=== PATIENT | male | born 1990 | race Caucasian/White ===

== ENCOUNTER → 2021-06-12 19:27 | Outpatient (CLI) | payer MEDICAID, SELFPAY | PROVIDERS: Visit Provider Nurse Practitioner Family | DX: Z20.822 Contact with and (suspected) exposure to COVID-19 (principal) | CPT/HCPCS: C9803; U0003; U0005 ==

== ENCOUNTER 2021-08-30 13:26 | Emergency (ER) | payer MEDICAID, SELFPAY ==
[2021-08-30 13:46] VITALS: BP 153/99; PULSE 90; RESP 19; TEMP 36.7; O2SAT 99
[2021-08-30 14:10] VITALS: BP 153/99; PULSE 90; RESP 19; TEMP 36.7; O2SAT 99
--- NOTE | 2021-08-30 14:10 | [facility].EDUTC ---
[facility] Dis[place] Clinical Impression: Burning with urination Disposition: Home, Self-Care Condition on Discharge: Good Additional Instructions: *Increase fluids. Water not Soda or Tea Be SURE to follow up anytime for new or worsening symptoms with your family doctor. AND follow up with them in 10-14 days to repeat UA t *Be sure to let your PCP know that we sent urine for testing from the [facility] so they can follow up to ensure clear of infection or provide treatmentt Call your doctor office and make appointment for 48 hours (2 days from today) to follow up and get the results of your urine culture and further treatment Referrals: Provider,Referral, MD [Primary Care Provider] - As needed Time of Disposition: 14:12 Medical Decision Making - Sagar Inquiry Pt receiving controlled substance: No Sagar was queried for this patient: No Vital Signs: 08/30/21 13:46 Temperature 98.0 F Temperature Source Oral Pulse Rate [Right Brachial] 90 Respiratory Rate 19 Blood Pressure [Right Arm] 153/99 H Blood Pressure Mean [Right Arm] 117 Blood Pressure Source [Right Arm] Automatic Cuff Blood Pressure Position [Right Arm] Sitting 02 Sat by Pulse Oximetry 99 Oxygen Delivery Method Room Air - Lab Data Lab results reviewed: Yes: I reviewed the patient's lab results. [facility] HPI - General Stated complaint: painful urination Time Seen by Provider: 08/30/21 14:10 Mode of Arrival: Ambulatory Source of Information: Patient Limitations: No Limitations Description of Symptoms (Recalled from Triage Doc. by RN): burning and trouble urinating HEENT Symptoms (Recalled from RN notes): No Resp Symptoms (Recalled from RN notes): No Skin Symptoms (Recalled from RN notes): No MS Symptoms (Recalled from RN notes): No Functional Status (Recalled from RN notes): wnl - History of Present Illness Provider Complaint: Patient state that he has been having some burning with urination and feeling of pressure that comes and goes before he urinates State that he had a UTI about a month ago and felt similar so he came back in to get checked again - Related Data Home Medications Medication Instructions Recorded Confirmed No Known Home Medications 06/12/21 06/12/21 Allergies Allergy/AdvReac Type Severity Reaction Status Date / Time Penicillins Allergy Verified 06/12/21 16:28 - Worker's Comp Is this a Worker's Comp case?: No [facility] History - Hepatitis A Screen Drug use history?: No High risk sexual behaviors?: No History of sexually transmitted infection?: No Currently employed?: No Childcare worker?: No Do you have indoor plumbing?: Yes Do you have electricity?: Yes Attestation statement:: This patient has been screened for Hepatitis A risk factors. I have reviewed the patient's past medical history: Yes Medical History: Denies:: Diabetes Mellitus Type 1, Diabetes Mellitus Type 2 Amputation: No Fractures: No Comment: left hand surgery - Social History Smoking Status: Current every day smoker Tobacco Type: cigarettes # Packs/Day (cigarettes): 1 Alcohol Intake: never Occupational Status: employed Family Hx:: Non-contributory ROS Obtained: Yes All systems reviewed & no additional complaints, Yes Systems reviewed as appropriate & no additional complaints - Constitutional Constitutional: Reports system reviewed and no additional complaints, except as docu, Denies body ache, Denies chills, Denies fever(s) - ENT Ears, Nose, Mouth, and Throat: Reports system reviewed and no additional complaints, except as docu - Cardiovascular Cardiovascular: Reports system reviewed and no additional complaints, except as docu - Respiratory Respiratory: Reports system reviewed and no additional complaints, except as docu - Gastrointestinal Gastrointestingal: Reports: system reviewed and no additional complaints, except as docu. Denies: abdominal pain, cramping, diarrhea, nausea, vomiting - Genitourinary Male Genitourinary: Re
[2021-08-30 14:12] LABS: Apearance,Urine Clear (Clear); Color,Urine Yellow (Yellow); PH,Urine 6.5 (5.0-8.5); Specific Gravity, Urine 1.025 (1.005-1.030)
[2021-08-30 14:13] LABS: Bilirubin,Urine Negative (Negative); Blood, Urine Negative (Negative); Glucose,Urine (UA) Negative (Negative); Ketones,Urine 1+ (Negative); Protein,Urine Negative (Negative); UTC Leukocyte Esterase,Urine Negative (Negative); UTC Nitrate,Urine Negative (Negative); Urobilinogen,Urine 0.2 EU/dl (0.2)
[2021-09-02 13:41] LABS: Neisseria gonorrhoeae, NAA Negative (Negative)
== END 2021-08-30 14:10 | disposition home or self-care (01) ==
PROVIDERS: Emergency Provider Nurse Practitioner
DX: R30.0 Dysuria (principal); F17.210 Nicotine dependence, cigarettes, uncomplicated
CPT/HCPCS: 81003; 87491; 87591; 99202; G0463